=== PATIENT | male | born 1955 | race African-American/Black ===

== ENCOUNTER 2022-07-16 16:20 | Emergency (ER) | payer OTHER ==
[2022-07-16 16:26] VITALS: BP 129/76; PULSE 61; RESP 18; TEMP 98; BMI 22.5
[2022-07-16 18:17] LABS: PH,URINE 5.5 (5.0-8.0); URINE APPEARANCE CLEAR; URINE BILIRUBIN NEGATIVE (NEGATIVE); URINE COLOR YELLOW; URINE GLUCOSE (UA) NEGATIVE (NEGATIVE); URINE KETONE NEGATIVE (NEGATIVE); URINE LEUK ESTERASE NEGATIVE (NEGATIVE); URINE NITRITE NEGATIVE (NEGATIVE); URINE PROTEIN NEGATIVE (NEGATIVE); URINE UROBILINOGEN 0.2 mg/dL (0.2-1.0)
[2022-07-16 18:28] LABS: BASO % 0.5 % (0-2.0); EOS % 1.4 % (0-4.5); HEMATOCRIT 40.2 % (35.4-49); HEMOGLOBIN 13.4 GM/dL (11.7-16.9); LYMPH % 25.4 % (8-40); MCH 27.2 pg (25.7-33.7); MCHC 33.4 g/dl (32.0-35.9); MEAN CELL VOLUME 81.5 fl (80-96); MEAN PLT VOLUME 7.7 fl (7.5-11.1); MONO % 6.9 % (3.8-10.2); NEUT % 65.8 % (42.8-82.8); PLATELET COUNT 206 10^3/uL (134-434); RBC 4.93 M/mm3 (4.00-5.60); RDW 14.1 % (11.9-15.9); WHITE BLOOD COUNT 7.1 K/mm3 (4.0-10.0)
[2022-07-16] MEDS ORDERED: SODIUM CHLORIDE 0.9% 1000 ML INFUS.BAG IV ONE (18:41)
[2022-07-16 18:45] LABS: ALBUMIN 3.8 g/dl (3.4-5.0); BLOOD UREA NITROGEN 19.5 mg/dL (7-18); CALCIUM 8.9 mg/dL (8.5-10.1)
[2022-07-16 18:49] LABS: CREATININE 1.1 mg/dL (0.55-1.3)
[2022-07-16 18:50] LABS: BILIRUBIN,TOTAL 1.1 mg/dL (0.2-1); TOT PROT 6.9 g/dl (6.4-8.2)
== END 2022-07-16 22:05 | disposition home or self-care (01) ==
LOC: JER 16:20
DX: R53.83 Other fatigue (principal); R25.1 Tremor, unspecified; R63.8 Other symptoms and signs concerning food and fluid intake
CPT/HCPCS: 36415; 70450-TC; 80053; 81003; 84484; 85025; 87086; 93005; 93010; 99285-25

== ENCOUNTER 2022-11-23 16:14 | Observation (INO) | payer OTHER ==
[2022-11-23 16:50] VITALS: BMI 24.3
[2022-11-23 18:55] LABS: BASO % 0.3 % (0-2.0); HEMATOCRIT 43.8 % (35.4-49); HEMOGLOBIN 13.9 GM/dL (11.7-16.9); LYMPH % 30.4 % (8-40); MCH 26.3 pg (25.7-33.7); MCHC 31.8 g/dl (32.0-35.9); MEAN CELL VOLUME 82.7 fl (80-96); MONO % 7.7 % (3.8-10.2); NEUT % 59.6 % (42.8-82.8); PLATELET COUNT 204 10^3/uL (134-434); RDW 14.3 % (11.9-15.9); WHITE BLOOD COUNT 6.7 K/mm3 (4.0-10.0)
[2022-11-23 19:08] LABS: PH,URINE 6.5 (5.0-8.0); URINE APPEARANCE CLEAR; URINE BILIRUBIN NEGATIVE (NEGATIVE); URINE COLOR YELLOW; URINE GLUCOSE (UA) NEGATIVE (NEGATIVE); URINE KETONE NEGATIVE (NEGATIVE); URINE LEUK ESTERASE NEGATIVE (NEGATIVE); URINE NITRITE NEGATIVE (NEGATIVE); URINE PROTEIN NEGATIVE (NEGATIVE)
[2022-11-23 19:37] LABS: ALBUMIN 3.4 g/dl (3.4-5.0); CALCIUM 9.3 mg/dL (8.5-10.1)
[2022-11-23 19:38] LABS: BLOOD UREA NITROGEN 14.1 mg/dL (7-18)
[2022-11-23 19:40] LABS: CREATININE 1.1 mg/dL (0.55-1.3)
[2022-11-23 19:42] LABS: BILIRUBIN,TOTAL 0.8 mg/dL (0.2-1); TOT PROT 6.7 g/dl (6.4-8.2)
[2022-11-24 06:12] LABS: BASO % 0.3 % (0-2.0); EOS % 1.9 % (0-4.5); HEMATOCRIT 42.6 % (35.4-49); HEMOGLOBIN 13.5 GM/dL (11.7-16.9); LYMPH % 23.2 % (8-40); MCH 26.6 pg (25.7-33.7); MCHC 31.7 g/dl (32.0-35.9); MEAN CELL VOLUME 83.9 fl (80-96); MEAN PLT VOLUME 8.2 fl (7.5-11.1); MONO % 9.5 % (3.8-10.2); NEUT % 65.1 % (42.8-82.8); PLATELET COUNT 189 10^3/uL (134-434); RBC 5.08 M/mm3 (4.00-5.60); RDW 14.4 % (11.9-15.9); WHITE BLOOD COUNT 6.1 K/mm3 (4.0-10.0)
[2022-11-24 06:31] LABS: ALBUMIN 3.3 g/dl (3.4-5.0); CALCIUM 8.9 mg/dL (8.5-10.1)
[2022-11-24 06:32] LABS: MAGNESIUM 2.1 mg/dL (1.8-2.4)
[2022-11-24 06:34] LABS: CHOLESTEROL 188 mg/dL (50-200); TRIGLYCERIDES 50 mg/dL (0-150)
[2022-11-24 06:35] LABS: LDL CHOLESTEROL (ONLY SJRH) 98 mg/dL (5-100); PHOSPHOROUS 3.8 mg/dL (2.5-4.9)
[2022-11-24 06:36] LABS: BILIRUBIN,TOTAL 0.8 mg/dL (0.2-1); TOT PROT 6.4 g/dl (6.4-8.2)
[2022-11-24 06:37] LABS: HDL CHOLESTEROL 88 mg/dL (40-60)
[2022-11-24 06:53] VITALS: RESP 18
[2022-11-24] MEDS ORDERED: INSULIN SLIDING SCALE (NOVOLOG) 1 VIAL SQ SCH (07:00)
[2022-11-24 07:02] LABS: CREATININE 1.1 mg/dL (0.55-1.3)
[2022-11-24] MEDS ORDERED: ENOXAPARIN NA (PORCINE) 40 MG/0.4 ML DISP.SYRIN SQ SCH (10:00)
[2022-11-24 11:09] VITALS: BP 144/94; PULSE 94; TEMP 98.1
== END 2022-11-24 12:35 | disposition home or self-care (01) ==
LOC: JER 16:14 → JERBED 20:09
PROVIDERS: ADMIT Internal Medicine; ATTEND Internal Medicine
DX: R41.82 Altered mental status, unspecified (principal); R73.03 Prediabetes; I10 Essential (primary) hypertension; E78.5 Hyperlipidemia, unspecified; F41.9 Anxiety disorder, unspecified; Z29.8 Encounter for other specified prophylactic measures; F10.21 Alcohol dependence, in remission
CPT/HCPCS: 0241U-QW; 36415; 70450-TC; 71045-TC-FY; 80053; 80061; 81003; 82607; 82747; 82962; 83735; 84100; 84443; 85014; 85025; 93005; 93010; 93306-TC; 99285-25; G0378

== ENCOUNTER 2024-06-02 08:20 | Emergency (ER) | payer OTHER ==
[2024-06-02 08:24] VITALS: BP 132/69; PULSE 61; RESP 18; TEMP 98.4; BMI 20.7
[2024-06-02] MEDS: SODIUM CHLORIDE 0.9% 1000 ML INFUS.BAG IV ONE ×2 (09:47→12:00)
[2024-06-02 10:29] LABS: BASO % 0.2 % (0-2.0); EOS % 0.5 % (0-4.5); HEMOGLOBIN 14.5 GM/dL (11.7-16.9); LYMPH % 19.6 % (8-40); MCH 27.7 pg (25.7-33.7); MCHC 33.7 g/dl (32.0-35.9); MEAN CELL VOLUME 82.4 fl (80-96); MONO % 6.4 % (3.8-10.2); NEUT % 73.3 % (42.8-82.8); PLATELET COUNT 211 10^3/uL (134-434); RBC 5.22 M/mm3 (4.00-5.60); RDW 14.1 % (11.9-15.9); WHITE BLOOD COUNT 6.8 K/mm3 (4.0-10.0)
[2024-06-02 10:33] LABS: ALBUMIN 4.1 g/dl (3.4-5.0); BILIRUBIN,TOTAL 1.8 mg/dL (0.2-1); BLOOD UREA NITROGEN 11.1 mg/dL (7-18); CALCIUM 9.8 mg/dL (8.5-10.1); MAGNESIUM 1.9 mg/dL (1.8-2.4); POTASSIUM 4.6 mmol/L (3.5-5.1); TOT PROT 7.6 g/dl (6.4-8.2)
== END 2024-06-02 14:24 | disposition home or self-care (01) ==
LOC: JER 08:20
DX: K52.9 Noninfective gastroenteritis and colitis, unspecified (principal); Z20.822 Contact with and (suspected) exposure to COVID-19
CPT/HCPCS: 0241U-QW; 36415; 76705-TC; 80053; 83690; 83735; 85025; 99284-25